=== PATIENT | male | born 1950 | race Caucasian/White ===

== ENCOUNTER → 2017-06-12 12:57 | Outpatient (CLI) | payer OTHER, SELFPAY ==
--- NOTE | 2017-06-12 13:02 | CT_ITS ---
STUDY: CT ABDOMEN AND PELVIS WITHOUT CONTRAST REASON FOR EXAM: Male, 66 years old. Right flank pain. Right inguinal hernia surgery. RADIATION DOSAGE (If Supplied By Facility): CTDIvol = ( 14.80 ) mGy, DLP = ( 810.07 ) mGycm TECHNIQUE: Transaxial images were obtained from the dome of the diaphragm to the symphysis pubis without oral contrast, and without intravenous contrast. Sagittal and coronal images were reconstructed. Individualized dose optimization techniques were used for this CT. COMPARISON: None. FINDINGS: The visualized lung bases are unremarkable. The visualized portions of the heart are within normal limits. Normal liver. Normal gallbladder and extrahepatic biliary system. Normal spleen. Normal pancreas. Normal bilateral adrenal glands. Normal right kidney. Normal left kidney. Small hiatal hernia. Normal small intestine. Small diverticula along the sigmoid colon, descending colon, transverse colon and without diverticulitis. The appendix is visualized and appears normal. Atherosclerotic calcifications along the abdominal aorta and iliac arteries. Normal inferior vena cava. Normal retroperitoneum. Normal urinary bladder. Normal abdominal wall. Degenerative vacuum phenomenon with disc space height narrowing at L4-L5 and L5-S1 disc space levels. Normal anterior wedging of the superior endplates of T10, T11, T12 and L1 vertebral bodies may be developmental or from remote injury. No acute osseous abnormality. Degenerative osteoarthrosis of the hip joints, left greater than right. CT/Abdomen/Pelvis without Cont IMPRESSION: 1. Colonic diverticulosis without diverticulitis. 2. Small hiatal hernia. 3. Asymmetric degenerative osteoarthrosis of both hips, left greater than right. 4. Degenerative vacuum phenomenon with disc space narrowing at L4-L5 and L5-S1 disc space levels. 5. Minimal anterior wedging of the superior endplates of T10 down to L1 vertebral bodies may be developmental or from remote injury. Electronically Signed: Vladimir Mcleod MD at 13:28 EDT , Service support ,
== END ==
PROVIDERS: Family Provider Internal Medicine; PCP Internal Medicine; Visit Provider Nurse Practitioner Gerontology
DX: R31.9 Hematuria, unspecified (principal)
CPT/HCPCS: 74176

== ENCOUNTER → 2018-06-01 13:04 | Outpatient (CLI) | payer OTHER, SELFPAY ==
--- NOTE | 2018-06-01 13:12 | RAD_ITS ---
STUDY: X-RAY - LEFT KNEE REASON FOR EXAM: Male, 67 years old. Knee pain. TECHNIQUE: 4 view(s) of the knee. COMPARISON: None. FINDINGS: There is generalized osteopenia. Normal visualized distal femur. Normal visualized proximal tibia and fibula. Normal proximal tibiofibular articulation. There is severe arthrosis of the medial compartment, mild arthrosis of the lateral compartment and moderate arthrosis of the patellofemoral compartment. There are vascular calcifications. RAD/Knee 4 or More Views IMPRESSION: Osteopenia with tricompartmental arthrosis as described. Electronically Signed: Wiley Noland MD at 15:31 EDT , Service support ,
--- NOTE | 2018-06-01 13:12 | RAD_ITS ---
STUDY: X-RAY - RIGHT KNEE REASON FOR EXAM: Male, 67 years old. Knee pain. TECHNIQUE: 4 view(s) of the knee. COMPARISON: None. FINDINGS: There is generalized osteopenia. Normal visualized distal femur. Normal visualized proximal tibia and fibula. Normal proximal tibiofibular articulation. There is severe arthrosis of the medial compartment, mild arthrosis of the lateral compartment and severe arthrosis of the patellofemoral compartment. There is a small joint effusion. The soft tissue structures are otherwise unremarkable. RAD/Knee 4 or More Views IMPRESSION: Osteopenia with tricompartmental arthrosis and small effusion. No acute finding. Electronically Signed: Wiley Noland MD at 15:29 EDT , Service support ,
== END ==
PROVIDERS: Family Provider Internal Medicine; PCP Internal Medicine; Referring Provider Internal Medicine; Visit Provider Internal Medicine
DX: M25.561 Pain in right knee (principal); M25.562 Pain in left knee
CPT/HCPCS: 73564

== ENCOUNTER → 2019-08-23 | Outpatient (CLI) | payer OTHER, SELFPAY ==
--- NOTE | 2019-08-23 11:36 | RAD_ITS ---
STUDY: X-RAY - PELVIS AND LEFT HIP REASON FOR EXAM: Male, 69 years old. LEFT HIP PAIN TECHNIQUE: 3 views of the pelvis and hip. COMPARISON: None. FINDINGS: There is a non-specific bowel gas pattern. Normal visualized soft tissue structures. There is narrowing with cortical sclerosis and osteophyte formation of the sacroiliac joint consistent with degenerative osteoarthritic changes. Normal bilateral superior and inferior pubic rami. Normal pubic symphysis. Normal bilateral ischial tuberosities. There is severe left hip arthrosis with obliteration of the joint space superiorly, and subchondral changes in the lateral acetabulum and femoral head suggesting AVN. Age consistent right hip arthrosis. No demonstrated fracture RAD/HIP, UNI W/ Pelvis 2-3 Views IMPRESSION: Severe left hip arthrosis with plain film changes of AVN, no demonstrated fracture Age consistent right hip and SI joint arthrosis Electronically Signed: Jesus Enamorado MD at 17:24 EDT , Service support ,
== END | disposition home or self-care (01) ==
PROVIDERS: PCP Internal Medicine; Referring Provider Internal Medicine; Visit Provider Internal Medicine
DX: M25.552 Pain in left hip (principal)
CPT/HCPCS: 73502

== ENCOUNTER → 2019-09-17 10:41 | Outpatient (CLI) | payer OTHER, SELFPAY ==
--- NOTE | 2019-09-17 10:45 | MRI_ITS ---
STUDY: MRI LEFT HIP REASON FOR EXAM: Left hip pain, abnormal radiograph, rule out avascular necrosis. TECHNIQUE: Standardized fat and water weighted pulse sequences were obtained in all 3 orthogonal planes. COMPARISON: Radiographs 08/23/2019. FINDINGS: There is left hip arthrosis with small marginal osteophytes of the femoral head, chondral loss (proton-density sagittal images 13, 14) and prominent subchondral cystic change of the acetabulum and femoral head (proton-density sagittal images 10-16). There is a small left hip joint effusion (proton-density sagittal image 17). There is a tear of the left superior labrum (inversion recovery coronal images 13-16) with a small paralabral cyst (inversion recovery coronal images 16, 17). There is mild reactive bone edema adjacent to the subchondral cystic change of the acetabulum and femoral head with mild bone edema extending into the femoral neck (inversion recovery coronal images 14-17). There is no demonstrated avascular necrosis of the left femoral head Normal gluteus minimus, medius and iliopsoas tendons and distal insertions. There is no trochanteric, iliopsoas or iliopectineal bursitis. Normal superior and inferior pubic rami. Normal pubic symphysis. Normal ischial tuberosity. Normal origin of the hamstring tendons. Normal visualized iliac wing, sacroiliac joint, and sacral ala. Normal visualized soft tissue structures of the pelvis. MRI/Lower Ext Joint Only (Routine) IMPRESSION: Advanced arthrosis of the left hip with prominent subchondral cysts and mild adjacent bone edema. Left superior labral tear with small paralabral cyst. Small left hip joint effusion. No demonstrated avascular necrosis. Electronically Signed: Chris Pagan MD at 12:24 EDT Tel , Service support ,
== END ==
PROVIDERS: PCP Internal Medicine; Referring Provider Internal Medicine; Visit Provider Internal Medicine
DX: R93.7 Abnormal findings on diagnostic imaging of other parts of musculoskeletal system (principal)
CPT/HCPCS: 73721

== ENCOUNTER 2020-01-20 10:25 | Observation (INO) | payer OTHER, SELFPAY ==
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
[2020-01-13 13:55] LABS: Absolute Lymphocyte Count 0.82 X10^3/uL (0.83-4.51); Absolute Neutrophil Count 4.8 X10^3/uL (2.0-7.7); Basophil# 0.05 X10^3/uL; Basophil% 0.8 % (0-1); Eosinophil# 0.23 X10^3/uL; Eosinophils% 3.6 % (0-5); Hematocrit 50.3 % (40-54); Lymphocyte # 0.82 X10^3/ul (4.0); Lymphocyte % 12.9 % (19-41); Mean Corp Hgb Conc 31.8 g/dL (32-36); Mean Corpuscular Hgb 29.5 pg (27.0-32.0); Mean Corpuscular Volume 92.6 fL (80-94); Mean Platelet Vol. 9.6 fl (6.2-12.0); Monocyte# 0.48 X10^3/uL; Monocyte% 7.6 % (0-10); NRBC Flagged by Analyzer 0 % (0-5); Neutrophil # 4.75 X10^3/uL (2.7-7.7); Neutrophil % 74.8 % (47-70); Platelet Count 236 K/mm3 (150-450); RBC Distribution Width CV 13.2 % (11.6-14.6); RBC Distribution Width SD 45.1 fl (35.1-43.9); Red Blood Count 5.43 M/mm3 (4.6-6.2); White Blood Count 6.4 K/mm3 (4.4-11.0)
[2020-01-13 14:38] LABS: Anion Gap 2 (5-15); BUN 24 mg/dL (7-18); Calcium,Total 9.2 mg/dL (8.5-10.1); Chloride 104 mmol/L (98-107); Creatinine, Serum 1.33 mg/dL (0.70-1.30); EST Glomerular Filtration Rate 57 mL/min (>60); Est Glom Filt Rate - Afr Amer 69 mL/min (>60); Glucose 82 mg/dL (74-106); Sodium Level 140 mmol/L (136-145)
[2020-01-20] VITALS (11 sets, daily range): BP systolic 118–159; BP diastolic 69–105; PULSE 81–97; RESP 16–18; TEMP 36.1–36.7; O2SAT 91–100; BMI 32.5
[2020-01-20] MEDS: Acetaminophen 500 MG Tablet 1000 MG PO ×3 (09:14→21:03)
[2020-01-20] MEDS: Gabapentin 600 MG Tablet PO (09:14)
[2020-01-20] MEDS: Celecoxib 200 MG Capsule 400 MG PO (09:14)
[2020-01-20] MEDS: Scopolamine 1mg/72hr Patch 1 PATCH TD (09:15)
[2020-01-20] MEDS: Lactated Ringers 1,000 ML 100 ML IV (09:19)
[2020-01-20 09:55] LABS: Bedside Glucose 97 mg/dL (70-110)
--- NOTE | 2020-01-20 10:25 | FEM._PTH ---
PATIENT: ODELL DE LEÓN LOC: MS3 U#:[id number] AGE/SX: 69/M ROOM: MS311 RE01/20/[address]: Dr. Noé Sanchez DO : 1950 BED: 1 DIS: 01/21/2020 SPEC #: [id number] RECD: 01/20/20 10:25 STATUS: BE REQ #: [id number] BETSY: 01/20/20 10:[address]: Noé Sanchez DEPT: SURGICAL PATHOLOGY RECD BY: Dianelys Perkins ENTERED: 01/20/20 13:42 SP TYPE: FEM HEAD OTHR DR: Dr. Joana High DO Tissues: Hip, NOS Procedures: Decalcification bone/plaque Surgery Specimen Level IV HEADER OPERATION: ERAS, total hip replacement PRE-OP DIAGNOSIS: Left hip osteoarthritis TISSUE SUBMITTED: Bone and soft tissue left hip MICROSCOPIC DIAGNOSIS Bone and soft tissue of left hip, total hip resection: Consistent with severe degenerative joint disease. AM:karmen 01/23/20 MICROSCOPIC DESCRIPTION Slides are reviewed. GROSS DESCRIPTION Received is one container labeled with the patient's name and designated bone and soft tissue of left hip. The specimen consists of a campoverde femoral head measuring 5.6 x 4.5 x 4 cm. The articular surface displays prominent osteophyte formation, eburnation and bone erosion. Also present in the specimen container are multiple irregular fragments of bone reamings and pink-yellow soft tissue measuring in aggregate 6.5 x 6 x 1.2 cm. Lab Asst sections are submitted in two cassettes as follows: 1 - soft tissue, 2 - bone after decalcification. / AM:karmen 01/20/20 TC:5 CPT: 04337, 27072
--- NOTE | 2020-01-20 10:26 | RAD_ITS ---
STUDY: X-RAY - PELVIS AND LEFT HIP REASON FOR EXAM: Postop left hip arthroplasty. TECHNIQUE: 2 views of the pelvis and hip. COMPARISON: Radiographs 08/23/2019. FINDINGS: There is postoperative gas in the soft tissues and overlying skin marcial. There is ankylosis of the superior aspects of the sacroiliac joints bilaterally. Normal bilateral superior and inferior pubic rami. Normal pubic symphysis. Normal bilateral ischial tuberosities. There is a left hip arthroplasty without evidence of complication. RAD/Hip Min 2 Views (Portable) IMPRESSION: Uncomplicated left hip arthroplasty. Electronically Signed: Chris Pagan MD at 13:38 EST Tel , Service support ,
[2020-01-20] MEDS: Cefazolin 2 GM in 0.9% Normal Saline 100 ML IV (10:38)
[2020-01-20] MEDS: dexAMETHasone 10 MG/ML Vial IV (10:50)
--- NOTE | 2020-01-20 11:57 | OP.PCM_ITS ---
Report of Operation Date of Procedure: 01/20/20 Pre-Operative Diagnosis: OA left hip Post-Operative Diagnosis: same Surgery/Procedure Performed:: Left THR vehicle refinisher: Eber Payan Type of Anesthesia:: Spinal Anesthesiologist: Lopez Berrios Specimen's removed: bone Estimated Blood Loss (mL): 100 cc - Admit VTE Documentation VTE Present on Admission: No VTE Mechan Device Prophylaxis: SCD's, Thigh High ZEINAB Hose VTE Pharm Prophylaxis ordered?: Yes
[2020-01-20] MEDS: Lactated Ringers 1,000 ML 999 ML IV (12:35)
[2020-01-20 12:59] LABS: Hematocrit 44.7 % (40-54); Hemoglobin 14.9 g/dL (13.0-16.5); Mean Corp Hgb Conc 33.3 g/dL (32-36); Mean Corpuscular Hgb 30.4 pg (27.0-32.0); Mean Corpuscular Volume 91.2 fL (80-94); Mean Platelet Vol. 9.2 fl (6.2-12.0); Platelet Count 206 K/mm3 (150-450); RBC Distribution Width CV 13.1 % (11.6-14.6)
[2020-01-20 13:11] LABS: Anion Gap 7 (5-15); BUN 19 mg/dL (7-18); BUN/Creat Ratio 16.8 RATIO (10-20); Calcium,Total 8.3 mg/dL (8.5-10.1); Chloride 106 mmol/L (98-107); Creatinine, Serum 1.13 mg/dL (0.70-1.30); EST Glomerular Filtration Rate 69 mL/min (>60); Est Glom Filt Rate - Afr Amer 83 mL/min (>60); Estimated Creatinine Clearance 62.57 ml/min; Glucose 142 mg/dL (74-106); Potassium 3.3 mmol/L (3.5-5.1); Sodium Level 140 mmol/L (136-145)
[2020-01-20] MEDS: Lactated Ringers 1,000 ML 125 ML IV (13:34)
[2020-01-20] MEDS: Aspirin 81 MG TAB.CHEW PO (17:02)
[2020-01-20] MEDS: Cefazolin 1 GM/50 ML BAG IV (18:43)
[2020-01-20] MEDS: Senna/Docusate Sodium 1 Tablet 2 TABLET PO (21:03)
[2020-01-21] MEDS: oxyCODONE 5 MG Tablet PO ×3 (00:13→12:31)
[2020-01-21] MEDS: Cefazolin 1 GM/50 ML BAG IV (02:17)
[2020-01-21 04:30] VITALS: BP 111/63; PULSE 77; RESP 16; TEMP 36.7; O2SAT 100
[2020-01-21] MEDS: Acetaminophen 500 MG Tablet 1000 MG PO ×2 (06:01→14:17)
[2020-01-21 07:08] LABS: Hematocrit 42.5 % (40-54); Hemoglobin 14.1 g/dL (13.0-16.5); Mean Corp Hgb Conc 33.2 g/dL (32-36); Mean Corpuscular Hgb 30.1 pg (27.0-32.0); Mean Corpuscular Volume 90.8 fL (80-94); Mean Platelet Vol. 9.9 fl (6.2-12.0); Platelet Count 176 K/mm3 (150-450); RBC Distribution Width CV 13.2 % (11.6-14.6); Red Blood Count 4.68 M/mm3 (4.6-6.2); White Blood Count 11.8 K/mm3 (4.4-11.0)
[2020-01-21 07:32] LABS: Anion Gap 5 (5-15); BUN 17 mg/dL (7-18); BUN/Creat Ratio 16.5 RATIO (10-20); Calcium,Total 8.3 mg/dL (8.5-10.1); Chloride 107 mmol/L (98-107); Creatinine, Serum 1.03 mg/dL (0.70-1.30); EST Glomerular Filtration Rate 76 mL/min (>60); Est Glom Filt Rate - Afr Amer 92 mL/min (>60); Estimated Creatinine Clearance 68.64 ml/min; Glucose 113 mg/dL (74-106); Potassium 4.5 mmol/L (3.5-5.1); Sodium Level 138 mmol/L (136-145)
--- NOTE | 2020-01-21 08:14 | PCM.PN.ORT ---
Subjective: Pt. doing well. Pain well controlled on current regimen. Denies N/T/P. - Physical Exam Vitals/I&O's: Vital Signs Temp Pulse Resp BP Pulse Ox 98.0 F 77 16 111/63 100 01/21/20 04:30 01/21/20 04:30 01/21/20 04:30 01/21/20 04:30 01/21/20 04:30 Oxygen Flow Rate (L/min) 6 Oxygen Delivery Method Room Air Weight: 220 lb 0.341 oz Body Mass Index (BMI) 32.5 Intake and Output for Last 24 Hours 01/19/20 01/20/20 01/21/20 23:59 23:59 23:59 Intake Total 3486 / 3986 550 / 550 Output Total 150 / 675 975 / 975 Balance 3336 / 3311 -425 / -425 General: Alert, Oriented x3, Cooperative, No apparent distress Extremities: No clubbing, No cyanosis, No edema, Capillary Refill Less than 3 Seconds, No Calf Tenderness Skin: Incision - stable Neurological: Neuro grossly intact Laboratory Results 01/20/20 09:03: POC Glucose 97 01/20/20 12:50: WBC 8.0, RBC 4.90, Hgb 14.9, Hct 44.7, MCV 91.2, MCH 30.4, MCHC 33.3, RDW Std Deviation 44.0 H, RDW Coeff of Skyler 13.1, Plt Count 206, MPV 9.2 01/20/20 12:50: Sodium 140, Potassium 3.3 L, Chloride 106, Carbon Dioxide 27.0, Anion Gap 7, BUN 19 H, Creatinine 1.13, Estim Creat Clear Calc 62.57, Est GFR (MDRD) Af Amer 83, Est GFR (MDRD) Non-Af 69, BUN/Creatinine Ratio 16.8, Glucose 142 H, Calcium 8.3 L 01/21/20 06:48: WBC 11.8 H, RBC 4.68, Hgb 14.1, Hct 42.5, MCV 90.8, MCH 30.1, MCHC 33.2, RDW Std Deviation 44.0 H, RDW Coeff of Skyler 13.2, Plt Count 176, MPV 9.9 01/21/20 06:48: Sodium 138, Potassium 4.5, Chloride 107, Carbon Dioxide 26.0, Anion Gap 5, BUN 17, Creatinine 1.03, Estim Creat Clear Calc 68.64, Est GFR (MDRD) Af Amer 92, Est GFR (MDRD) Non-Af 76, BUN/Creatinine Ratio 16.5, Glucose 113 H, Calcium 8.3 L Current Medications Acetaminophen (Acetaminophen 500 Mg Tablet) 1,000 mg PO Q8 [facility] Last Admin: 01/21/20 06:01 Dose: 1,000 mg Documented by: Aspirin ([facility] 81 Mg [facility].Chew) [facility] Admin: 01/20/20 17:02 Dose: 81 mg Documented by: Cholecalciferol (Cholecalciferol (Vit D3) 1,000 Unit (25mcg)) 10,000 unit PO DAILY [facility] Sodium Chloride () 250 mls @ 15 mls/hr IV .[id number] PRN PRN Reason: Saline Flush Sodium Chloride () 250 mls @ 15 mls/hr IV .[id number] PRN PRN Reason: Additional IVPB Infusion Lactobacillus Acidophilus (Lactobacillus Acidophilus) 1 tablet PO DAILY [facility] Multivitamins (Vitamin B Comp W-C Capsule) [facility] Ondansetron HCl (Ondansetron 4 Mg/2 Ml Vial) 4 mg IV Q8H PRN PRN PRN Reason: NAUSEA Oxycodone HCl (Oxycodone 5 Mg Tablet) 5 - 10 mg PO Q4H PRN PRN PRN Reason: Pain Score 4-10 Last Admin: 01/21/20 07:04 Dose: 5 mg Documented by: Promethazine HCl (Promethazine 25 Mg/Ml Syringe) 12.5 mg IM Q6H PRN PRN; Protocol PRN Reason: NAUSEA/VOMITING Senna/Docusate Sodium (Senna/Docusate Sodium 1 Tablet) 2 tablet PO BID [facility] Last Admin: 01/20/20 21:03 Dose: 2 tablet Documented by: Sodium Chloride (0.9% Saline Lock 10 Ml Syringe) 10 - 40 ml IV UD PRN PRN Reason: SALINE FLUSH Medical Necessity - Tobacco Use Smoking Status: Former smoker Tobacco Use: Non-smoker Assessment/Plan s/p Left THR D/c home after PT today
--- NOTE | 2020-01-21 08:16 | DCINST_ITS ---
Discharge Diet: No Restrictions Discharge Activity: May Not Drive, May Shower May shower in (days): 2 May resume sexual activity in: No Restrictions Ice area for (Minutes): 30 Weight Bearing Status: Weight bearing as tolerated Call your doctor if your incision/area has: Continuous Slow Oozing, Sudden Increased Bleeding, Increased Pain/ Swelling, Increased Redness, Foul Smelling Discharge Call your doctor if you observe: Fever of 101 or Higher, Coldness, Increased Pain, Numbness or Tingling Change Dressing in (Days):: 5 Cleanse incision/area with: Soap & Water Allergies/Adverse Reactions: Allergies orange juice Adverse Reaction (Verified 01/20/20 08:23) Food Allergy Medications to take at Discharge Cartilage/Collagen/Bor/Hyalur [Joint Health Tablet] 2 ea PO DAILY 01/06/20 Cholecalciferol (Vitamin D3) [Vitamin D3] 10,000 unit PO DAILY 01/06/20 Corbyceps 2 cap PO TID 01/06/20 Inflam X 2 cap PO BID 01/06/20 L.acidoph,Paracasei, B.lactis [Probiotic] 1 ea PO DAILY 01/06/20 Phytonadione (Vit K1) [Vitamin K] 100 mcg PO DAILY 01/06/20 Ppq With Ubiquinal 1 cap PO DAILY 01/06/20 Vitamin B Complex 1 ea PO DAILY 01/06/20 Acetaminophen [Tylenol] 1,000 mg PO Q8 tab 01/21/20 Aspirin [Aspirin, Baby] 81 mg PO BIDCM tab.chew 01/21/20 Oxycodone [Oxyir] 5 - 10 mg PO Q4H PRN PRN 7 Days #60 tab 01/21/20 Senna/Docusate Sodium [Senokot-S] 2 tab PO BID tab 01/21/20 The following prescriptions were given: Oxycodone [Oxyir] 5 - 10 mg PO Q4H PRN PRN 7 Days #60 tab PRN Reason: Pain Score 4-10 Prescription Printed Primary Care Physician: Joana High DO [Primary Care Provider] - Test Results: Test results from this visit will be discussed in further detail at your follow- up appointment, if applicable. Proposed Discharge Date: 01/21/20
[2020-01-21 09:45] VITALS: BP 97/54; PULSE 81; RESP 16; TEMP 36.7; O2SAT 95
[2020-01-21] MEDS: Aspirin 81 MG TAB.CHEW PO (09:49)
[2020-01-21] MEDS: Vitamin B Comp W-C Capsule 1 CAP PO (09:49)
[2020-01-21] MEDS: Senna/Docusate Sodium 1 Tablet 2 TABLET PO (09:49)
--- NOTE | 2020-01-21 10:45 | CASEMGMT ---
THADDEUS VANG Face to Face with patient for initial transition planning/care coordination assessment. RN CM introduced self and role at [facility]. Patient sitting in chair, alert and oriented. Patient willing to participate in assessment and is able to answer all questions appropriately. Care providers, pharmacy, and demographics verified. Patient wishes to discharge home and is setup with [facility] for outpatient therapy. Patient states he has no further needs or concerns at this time. CM to follow for discharge planning needs that may arise. PCP: Anila Specialists: snow Sanchez Pharmacy: [facility] Insurance: [employer] Prescription Benefit: yes Living Will/HPOA: yes, Tati Lu LNOK: Tati Living Arrangements: Patient lives with in a single story home with 2 steps and railing x2. Patient states he was independent at home prior to surgery Transportation: DME/HHC: patient states he has shower chair, raised toilet, cane, walker, rollator, grab bars, and hip kit at home. Patient is scheduled for outpatient therapy at [facility] Disposition Plan: Patient to discharge home with outpatient therapy, family support, and follow-up plans in place. Kirsten DESIR, RN, CM
[2020-01-21 14:15] VITALS: BP 134/61; PULSE 98; RESP 16; TEMP 36.8; O2SAT 98
--- NOTE | 2020-01-21 14:15 | CHAPLAIN ---
Type of Pastoral Visit _x__ Initial Visit ___ Follow-up Visit ___ On-call Visit ___ General Patient Visit ___ Spiritual Assessment ___ Family Conference ___ Bereavement ___ Rapid Response ___ Code Blue ___ Other (describe below) Pastoral Care Referral From _x__ Patient ___ Family ___ Nurse ___ Physician ___ Charge Loader ___ Foundry Hand ___ Other (describe below) Sacrament/Intervention _x__ Active listening ___ Anointing ___ Jehovah'S Witness ___ Bereavement ___ Communion _x__ Elsie exploration ___ _x__ Life review _x__ Prayer ___ Reconciliation ___ Sacrament of Sick ___ Supportive presence ___ Wedding ___ Other (describe below) Pastoral Comments patient eager to tell his story of elsie and life; prayer
--- NOTE | 2020-01-21 14:18 | PHA.DC.MC ---
Pharmacy Service has performed discharge medication reconciliation and counseling for this patient. 1. ACETAMINOPHEN 1000MG PO Q8H 2. ASPIRIN 81MG PO BIDCM 3. OXYCODONE 5-10MG PO Q4H PRN PAIN 4-10 4. SENNA/DOCUSATE 2T PO BID The patient's discharge medication list was reviewed for discrepancies and discrepancies were resolved. Home Medications Cartilage/Collagen/Bor/Hyalur [Joint Health Tablet] 2 ea PO DAILY 01/06/20 Cholecalciferol (Vitamin D3) [Vitamin D3] 10,000 unit PO DAILY 01/06/20 Corbyceps 2 cap PO TID 01/06/20 Inflam X 2 cap PO BID 01/06/20 L.acidoph,Paracasei, B.lactis [Probiotic] 1 ea PO DAILY 01/06/20 Phytonadione (Vit K1) [Vitamin K] 100 mcg PO DAILY 01/06/20 Ppq With Ubiquinal 1 cap PO DAILY 01/06/20 Vitamin B Complex 1 ea PO DAILY 01/06/20 Acetaminophen [Tylenol] 1,000 mg PO Q8 tab 01/21/20 Aspirin [Aspirin, Baby] 81 mg PO BIDCM tab.chew 01/21/20 Oxycodone [Oxyir] 5 - 10 mg PO Q4H PRN PRN 7 Days #60 tab 01/21/20 Senna/Docusate Sodium [Senokot-S] 2 tab PO BID tab 01/21/20 The patient was counseled on the following discharge medications and changes in medications for homegoing were reviewed. The Reason for Use, instructions for use, and potential side effects were reviewed for all new medications. The patient's questions regarding all of their medications were answered. The patient was able to verbally demonstrate an understanding of their discharge medications.
== END 2020-01-21 14:29 | disposition home or self-care (01) ==
LOC: SDC 10:34 → MS3 10:34
PROVIDERS: Anesthesiology; Admitting Provider Orthopaedic Surgery; PCP Internal Medicine; Referring Provider Orthopaedic Surgery; Visit Provider Orthopaedic Surgery
PROC: 0SRB0JZ Replacement of Left Hip Joint with Synthetic Substitute, Open Approach (ICD-10-PCS; CPT 27130; principal; 2020-01-20 10:00)
DX: M16.12 Unilateral primary osteoarthritis, left hip (principal); Z20.828 Contact with and (suspected) exposure to other viral communicable diseases; Z79.899 Other long term (current) drug therapy; I45.10 Unspecified right bundle-branch block; Z87.891 Personal history of nicotine dependence; G25.81 Restless legs syndrome
CPT/HCPCS: 01214; 27130; 36415; 73502; 80048; 82962; 83735; 85025; 85027; 87081; 87426; 88305; 88311; 96365; 96366; 97110; 97116; 97162; 97166; 97530; 97535; 99218; 99251; C1776; C9803; J7120; G0378; G0379; G0463; J2405

== ENCOUNTER 2020-05-04 10:24 | Emergency (ER) | payer OTHER, SELFPAY ==
[2020-01-20 14:46] VITALS: BMI 32.5
[2020-05-04 10:25] VITALS: BP 158/99; PULSE 74; RESP 20; TEMP 36.3; O2SAT 99; BMI 32.3
--- NOTE | 2020-05-04 10:48 | ED.DCSUM_ITS ---
History of Present Illness Chief Complaint: Chest Pain Informant: Patient, Family Narrative: 69-year-old male states that on Monday at [address] he developed a squeezing severe pain in the left shoulder. Lasted at least 20 seconds and then let up. 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 He had a hip replacement in January and states since that time he is had fatigue. Notes that he has been previously treated for hypertension but since taking pham min D that is come down. He is a former smoker having quit over 20 years ago. He had a stress test at least 10 years ago that was negative. Past Medical History - Allergies and Home Meds Allergies/Adverse Reactions: Allergies orange juice Adverse Reaction (Verified 01/20/20 08:23) Food Allergy Primary Care Physician: Joana High DO [Primary Care Provider] - As soon as possible (to discuss Stress testing) Past Medical History: - - Hypertension history Surgical History: noncontributory Lives: Spouse/ Significant Other Smoking Status: Former smoker Drugs: None Review of Systems General: Denies: Chills, Fever, Sweats Eyes: Denies: Visual changes - bilaterally, Diplopia ENT: Denies: Rhinorrhea, Sore throat Cardiovascular: Denies: Chest pain, Palpitations Respiratory: Denies: Dyspnea, Cough, Dyspnea on exertion Gastrointestinal: Denies: Abdominal pain, Nausea, Vomiting, Diarrhea, Melena, Hematochezia Genitourinary: Denies: Dysuria, Hematuria, Frequency Musculoskeletal: Reports: Extremity Pain. Denies: Back pain Skin: Denies: Rash, Wounds Neurological: Denies: Headache, Weakness, Numbness Physical Exam Vital Signs/Narrative: Vital Signs Temp Pulse Resp BP Pulse Ox 05/04/20 10:25 97.3 F L 74 20 H 158/99 H 99 Inital Vital Signs reviewed: Yes General: Well nourished, Well developed, No Acute Distress Head: Normocephalic, Atraumatic Eyes: Perrl, EOMI ENT: Moist mucous membranes, No rhinorrhea Neck: Supple, Nontender Cardiovascular: Regular rate, Regular rhythm, No murmurs Respiratory: No distress, CTA bilaterally, Chest nontender Abdomen: Soft, Nontender, Nondistended, Normal bowel sounds Back: Nontender, Normal Inspection Extremities: Nontender, No edema Skin: Normal color, No rash Neurological: Alert, Oriented x3, Cranial nerves II-XII grossly intact, Normal Strength, Normal Sensation Psychological: Normal affect, Normal Mood Diagnostic/Tx/Re-eval Clinical Impression(s) from Imaging Studies Chest X-Ray 05/04/20 11:46 IMPRESSION: No acute abnormality is seen. Electronically Signed: Ja De La Fuente MD at 12:05 EDT , Service support , Abdomen/Pelvis CT 05/04/20 13:09 IMPRESSION: Sigmoid diverticulosis. Left renal cyst. Electronically Signed: Ja De La Fuente MD at 13:37 EDT , Service support , Laboratory Last Values WBC 5.1 K/mm3 (4.4-11.0) 05/04/20 10:45 RBC 5.69 M/mm3 (4.6-6.2) 05/04/20 10:45 Hgb 16.7 g/dL (13.0-16.5) H 05/04/20 10:45 Hct 51.1 % (40-54) 05/04/20 10:45 MCV 89.8 fL (80-94) 05/04/20 10:45 MCH 29.3 pg (27.0-32.0) 05/04/20 10:45 MCHC 32.7 g/dL (32-36) 05/04/20 10:45 RDW Std Deviation 41.1 fl (35.1-43.9) 05/04/20 10:45 RDW Coeff of Skyler 12.5 % (11.6-14.6) 05/04/20 10:45 Plt Count 222 K/mm3 (150-450) 05/04/20 10:45 MPV 9.5 fl (6.2-12.0) 05/04/20 10:45 Immature Gran % (Auto) 0.200 % (0.0-0.9) 05/04/20 10:45 Neut % (Auto) 68.4 % (47-70) 05/04/20 10:45 Lymph % (Auto) 16.0 % (19-41) L 05/04/20 10:45 [place] % (Auto) 7.9 % (0-10) 05/04/20 10:45 Eos % (Auto) 6.5 % (0-5) H 05/04/20 10:45 Baso % (Auto) 1.0 % (0-1) 05/04/20 10:45 Absolute Neuts (auto) 3.5 X10^3/uL (2.0-7.7) 05/04/20 10:45 Absolute Lymphs (auto) 0.81 X10^3/uL (0.83-4.51) L 05/04/20 10:45 Nucleated RBC % 0 % (0-5) 05/04/20 10:45 Sodium 138 mmol/L (136-145) 05/04/20 10:45 Potassium 4.3 mmol/L (3.5-5.1) 05/04/20 10:45 Chloride 103 mmol/L (98-107) 05/04/20 10:45 Carbon Dioxide 32.0 mmol/L (21.0-32.0) 05/04/20 10:45 Anion Gap 3 (5-15) L 05/04/20 10:45 BUN 19 mg/dL (7-18) H 05/04/20 10:45 Creatinine 1.24 mg/dL (0.70-1.30) 05/04/20 10:45 Estim Creat Clear Calc 60.73 ml/min 05/04/20 10:45 Est GFR (MDRD) Af Amer 74 mL/min (>60) 05/04/20 10:45 Est GFR (MDRD) Non-Af 62 mL/min (>60) 05/04/20 10:45 BUN/Creatinine Ratio 15.3 RATIO (10-20) 05/04/20 10:45 Glucose 95 mg/dL (74-106) 05/04/20 10:45 Calcium 9.4 mg/dL (8.5-10.1) 05/04/20 10:45 Troponin I < 0.015 ng/mL (<0.045) 05/04/20 10:45 - EKG Initial EKG Interpretation: Sinus Rhythm - EKG demonstrates a normal sinus rhythm with a rate of 73 with a right bundle branch block. - Medical Decision Making His heart score places him in the low risk category. I spoke with his primary care physician's office to help arrange early follow-up for cardiac stress testing. Patient is comfortable with that plan. The patient at exit interview informs me that he wonders if he has a kidney stone because he has been intermittently having left low back pain. He wishes to have this worked up as well here today. CT of the flank was obtained which does not demonstrate any ureterolithiasis. There is a noted left renal cyst. Sigmoid diverticulosis. UA does not show any infection. At this point patient will be discharged home following up with his doctor. ED Disposition - Plan for ED Patient: Disposition: Home or Assisted Living Diagnosis: Chest pain Instructions: ED Chest Pain, Uncertain Cause Referrals: Joana High DO [Primary Care Provider] - As soon as possible (to discuss Stress testing)
--- NOTE | 2020-05-04 10:48 | EKG12_ITS ---
Test Reason : CP Blood Pressure : / mmHG Vent. Rate : 073 BPM Atrial Rate : 073 BPM P-R Int : 172 ms QRS Dur : 146 ms QT Int : 406 ms P-R-T Axes : 039 -38 007 degrees QTc Int : 447 ms Normal sinus rhythm Left axis deviation Right bundle branch block Minimal voltage criteria for LVH, may be normal variant Abnormal ECG Confirmed by VALENTINO MULTANI, ART ([id number]), magazine editor JAJA SAL ([id number]) on 05/07/2020 9:35:19 AM Referred By: Confirmed By:ART AVELAR MD
[2020-05-04 10:55] LABS: Absolute Lymphocyte Count 0.81 X10^3/uL (0.83-4.51); Absolute Neutrophil Count 3.5 X10^3/uL (2.0-7.7); Basophil# 0.05 X10^3/uL; Eosinophil# 0.33 X10^3/uL; Eosinophils% 6.5 % (0-5); Hematocrit 51.1 % (40-54); Hemoglobin 16.7 g/dL (13.0-16.5); Lymphocyte # 0.81 X10^3/ul (4.0); Mean Corp Hgb Conc 32.7 g/dL (32-36); Mean Corpuscular Hgb 29.3 pg (27.0-32.0); Mean Corpuscular Volume 89.8 fL (80-94); Mean Platelet Vol. 9.5 fl (6.2-12.0); Monocyte% 7.9 % (0-10); NRBC Flagged by Analyzer 0 % (0-5); Neutrophil # 3.45 X10^3/uL (2.7-7.7); Neutrophil % 68.4 % (47-70); Platelet Count 222 K/mm3 (150-450); RBC Distribution Width CV 12.5 % (11.6-14.6); RBC Distribution Width SD 41.1 fl (35.1-43.9); Red Blood Count 5.69 M/mm3 (4.6-6.2); White Blood Count 5.1 K/mm3 (4.4-11.0)
[2020-05-04 11:09] LABS: Anion Gap 3 (5-15); BUN 19 mg/dL (7-18); BUN/Creat Ratio 15.3 RATIO (10-20); Calcium,Total 9.4 mg/dL (8.5-10.1); Chloride 103 mmol/L (98-107); Creatinine, Serum 1.24 mg/dL (0.70-1.30); EST Glomerular Filtration Rate 62 mL/min (>60); Est Glom Filt Rate - Afr Amer 74 mL/min (>60); Estimated Creatinine Clearance 60.73 ml/min; Glucose 95 mg/dL (74-106); Potassium 4.3 mmol/L (3.5-5.1); Sodium Level 138 mmol/L (136-145)
[2020-05-04 11:11] VITALS: BP 173/114; PULSE 72; RESP 21; O2SAT 99
--- NOTE | 2020-05-04 11:46 | RAD_ITS ---
STUDY: X-RAY CHEST REASON FOR EXAM: Male, 69 years old. Chest pain and left arm pain. TECHNIQUE: Single AP portable view of the chest. COMPARISON: None. FINDINGS: EKG lead or dressing. The lungs are clear and expanded. There is no demonstrated pleural abnormality. Normal size heart. Normal mediastinum and livia. Normal visualized pulmonary arteries. There is atherosclerotic calcification of the aortic arch with tortuosity. There are diffuse degenerative changes of the visualized thoracic spine. There is degenerative osteoarthritis of the bilateral shoulders. There is no demonstrated abnormality of the visualized soft tissue structures of the upper abdomen. RAD/Chest 1 View (Portable) IMPRESSION: No acute abnormality is seen. Electronically Signed: Ja De La Fuente MD at 12:05 EDT , Service support ,
--- NOTE | 2020-05-04 13:09 | CT_ITS ---
STUDY: CT ABDOMEN AND PELVIS WITHOUT CONTRAST REASON FOR EXAM: Male, 69 years old. ABD PAIN RADIATION DOSAGE (If Supplied By Facility): CTDIvol = ( 19.92 ) mGy, DLP = ( 982.92 ) mGycm TECHNIQUE: Transaxial images were obtained from the dome of the diaphragm to the symphysis pubis without oral contrast, and without intravenous contrast. Sagittal and coronal images were reconstructed. Individualized dose optimization techniques were used for this CT. COMPARISON: None. FINDINGS: The visualized lung bases are unremarkable. Coronary artery calcification. Normal liver. Normal gallbladder and extrahepatic biliary system. Normal spleen. Normal pancreas. Normal bilateral adrenal glands. Normal right kidney. There is a 2.3 cm cyst in the upper pole of the left kidney. Normal visualized stomach. Normal small intestine. There are multiple colonic diverticula consistent with diverticulosis. The appendix is visualized and appears normal. There is diffuse atherosclerotic calcification of the abdominal aorta and its major visceral branches, without a demonstrated aneurysm. Normal inferior vena cava. Normal retroperitoneum. Normal urinary bladder. The prostate measures 4 cm x 5.1 cm. Central calcification. Normal abdominal wall. There are diffuse degenerative changes of the visualized lumbar spine. Status post ORIF of the left intertrochanteric fracture. CT/Abdomen/Pelvis without Cont IMPRESSION: Sigmoid diverticulosis. Left renal cyst. Electronically Signed: Ja De La Fuente MD at 13:37 EDT , Service support ,
[2020-05-04 14:10] LABS: Bacteria 0 SEEN /hpf (None Seen); Mucous, Urine 0 SEEN /hpf (<or=2+); Squamous Epithelial Cells - UA 0 SEEN /hpf (0-5); White Blood Cells 0 SEEN /hpf (0-5)
[2020-05-04 14:13] LABS: Glucose, Dipstick Normal (Normal); Ketone-Dipstick Negative (Negative); Leukocyte Esterase-Dipstick Negative /ul (Negative); Nitrite-Dipstick Negative (Negative); Occult Blood-Urine Negative /ul (Negative); Protein-Dipstick Negative (Negative); Urine Bilirubin Dipstick Negative (Negative); Urine Urobilinogen Normal (Normal); Urine pH 6.5 (5.0 - 8.0)
[2020-05-04 14:21] LABS: Color, Urine Yellow (Yellow); Red Blood Cells-Urine 0-5 SEEN /hpf (0-5); Urine Clarity Clear (Clear)
== END 2020-05-04 14:30 | disposition home or self-care (01) ==
PROVIDERS: Emergency Provider Emergency Medicine; PCP Internal Medicine
DX: R07.9 Chest pain, unspecified (principal); Z87.891 Personal history of nicotine dependence
CPT/HCPCS: 71045; 74176; 80048; 81001; 84484; 85025; 93005; 99285; A4216

== ENCOUNTER → 2020-07-08 16:22 | Outpatient (CLI) | payer OTHER, SELFPAY ==
--- NOTE | 2020-07-08 16:26 | RAD_ITS ---
STUDY: X-RAY - RIGHT KNEE REASON FOR EXAM: Male, 70 years old. Pain. TECHNIQUE: 4 view(s) of the knee. COMPARISON: 06/01/2018 radiographs. FINDINGS: No visible fracture. No osseous destruction. Alignment anatomic. Marked osteoarthritis of the medial compartment with near complete joint space loss and osteophytes. Moderate patellofemoral and mild lateral compartment osteoarthritis. No acute soft tissue abnormality. Calcific atherosclerosis. RAD/Knee 4 or More Views IMPRESSION: Marked osteoarthritis of the medial compartment. No acute osseous abnormality. Electronically Signed: Ventura Taylor MD at 4:33 EDT Tel , Service support ,
--- NOTE | 2020-07-08 16:26 | RAD_ITS ---
STUDY: X-RAY - PELVIS AND RIGHT HIP REASON FOR EXAM: Male, 70 years old. Right hip pain. Fell 2 weeks ago. TECHNIQUE: 3 views of the pelvis and hip. COMPARISON: None. FINDINGS: No visible fracture. No osseous destruction. Alignment anatomic. Moderate right hip osteoarthritis. Left hip total hip arthroplasty partially visible. Soft tissues unremarkable. RAD/HIP, UNI W/ Pelvis 2-3 Views IMPRESSION: No acute osseous abnormality. Moderate right hip osteoarthritis Electronically Signed: Ventura Taylor MD at 4:35 EDT Tel , Service support ,
== END ==
PROVIDERS: PCP Internal Medicine; Referring Provider Internal Medicine; Visit Provider Internal Medicine
DX: M25.551 Pain in right hip (principal); M25.561 Pain in right knee
CPT/HCPCS: 73502; 73564

== ENCOUNTER → 2020-12-24 10:10 | Outpatient (CLI) | payer OTHER, SELFPAY ==
[2020-12-24 10:35] LABS: CREATININE FINGERSTICK 1.1 mg/dL (0.70-1.30); EGFR FINGERSTICK > 60.0000 mL/min (>60)
--- NOTE | 2020-12-24 10:42 | CT_ITS ---
STUDY: CTA CHEST REASON FOR EXAM: Male, 70 years old. PE SUSPECTED RADIATION DOSAGE (If Supplied By Facility): CTDIvol = ( 12.45 ) mGy, DLP = ( 505.42 ) mGycm TECHNIQUE: The examination was performed with the intravenous administration of IV 100mL Isovue-370. Post-processing of the angiographic images was performed, with multiplanar reformation and 3D reconstruction. Individualized dose optimization techniques were used for this CT. COMPARISON: None. FINDINGS: Scattered intraluminal filling defects are seen in branches of the left upper lobe pulmonary artery in keeping with pulmonary emboli. There is atherosclerotic calcification of the aortic arch with tortuosity. There is no demonstrated aortic dissection. There are calcifications of the coronary arteries. Normal mediastinum. Enlargement of the right hilar lymph node measuring 2.7 cm. Normal visualized trachea and bronchi. The lungs are well expanded. There are diffuse bilateral pulmonary infiltrates in the preferential peripheral distribution involving both lungs upper and lower lobes suggestive of pneumonitis associated with Covid. Normal pleura. Normal chest wall structures. There are degenerative changes of thoracic spine. Normal visualized upper abdomen. CT/CTA Chest W/WO Contrast IMPRESSION: Pulmonary emboli in branches of the left upper lobe pulmonary artery. Diffuse bilateral pulmonary infiltrates suggestive of pneumonitis associated with Covid. Electronically Signed: Ja De La Fuente MD at 11:02 EST , Service support ,
== END ==
PROVIDERS: PCP Internal Medicine; Visit Provider Internal Medicine
DX: R06.02 Shortness of breath (principal)
CPT/HCPCS: 71275; Q9967

== ENCOUNTER 2021-04-16 15:30 | Outpatient (CLI) | payer OTHER, SELFPAY ==
--- NOTE | 2021-04-16 15:34 | CT_ITS ---
STUDY: CTA CHEST REASON FOR EXAM: Male, 70 years old. PE RADIATION DOSAGE (If Supplied By Facility): CTDIvol = ( 12.59 ) mGy, DLP = ( 532.26 ) mGycm TECHNIQUE: The examination was performed with the intravenous administration of IV 100mL Isovue-300. Post-processing of the angiographic images was performed, with multiplanar reformation and 3D reconstruction. Individualized dose optimization techniques were used for this CT. COMPARISON: 12/24/2020 FINDINGS: Normal enhancement of the main pulmonary artery and right and left pulmonary arteries. Normal enhancement of the bilateral peripheral pulmonary arteries. There is no demonstrated pulmonary embolism. Normal thoracic aorta and visualized great vessels. There is no demonstrated aortic dissection. Normal heart and pericardium. Normal mediastinum. Normal hilar regions. Normal visualized trachea and bronchi. The lungs are well expanded. Normal pulmonary parenchyma. Normal pleura. Normal chest wall structures. Normal osseous structures. Normal visualized upper abdomen. CT/CTA Chest W/WO Contrast IMPRESSION: Normal CTA chest examination, without a demonstrated pulmonary embolism or arterial dissection. Electronically Signed: Cliff Garcia MD at 16:56 EST ,
[2021-04-16 15:46] LABS: CREATININE FINGERSTICK 1.1 mg/dL (0.70-1.30); EGFR FINGERSTICK > 60.0000 mL/min (>60)
== END 2021-04-16 23:59 | disposition home or self-care (01) ==
LOC: CT 15:31
PROVIDERS: PCP Internal Medicine; Visit Provider Internal Medicine
DX: I26.99 Other pulmonary embolism without acute cor pulmonale (principal)
CPT/HCPCS: 71275; Q9967

== ENCOUNTER 2021-05-25 11:03 | Outpatient (CLI) | payer OTHER, SELFPAY ==
--- NOTE | 2021-05-25 11:07 | ECHOCS_ITS ---
Reason For Study: RBBB Procedure This was a 2D Doppler, Color Flow transthoracic echocardiogram. Techncially difficult study due to patients body habitus. Contrast injection performed. The study was technically difficult. Contrast injection was performed. Exam performed in department. Left Ventricle Normal LV size. Moderate concentric left ventricular hypertrophy. Left ventricular systolic function is normal. The estimated ejection fraction is 60 %. No evidence for diastolic dysfunction. No regional wall motion abnormalities noted. Right Ventricle Normal RV size. Normal systolic function. Atria The left atrium is mildly enlarged. Normal right atrium. No doppler evidence for ASD. Mitral Valve There is no mitral annular calcification. Normal mitral valve. Trivial mitral valve insufficiency. Tricuspid Valve Normal tricuspid valve. Mild tricuspid valve insufficiency. Right ventricular systolic pressure estimated to be 26 mmHg. Aortic Valve Trisinus/trileaflet aortic valve. Normal aortic valve. Mild (1+) aortic valve insufficiency. Pulmonic Valve The pulmonic valve is not well visualized. Trivial pulmonic valve insufficiency. Great Vessels Borderline enlarged aortic root. Pericardium/Pleural No pericardial effusion. Medication 22 gauge I.V. with prn adaptor inserted into right arm. Diluted definity 3ml given slow IV push to enhance endocardial definition. MMode/2D Measurements & Calculations LVIDd: 5.2 cm IVSd: 1.4 cm Ao root diam: 3.9 cm LVIDs: 3.1 cm LVPWd: 1.3 cm LA dimension: 4.5 cm FS: 41.0 % LAV(MOD-bp): 46.6 ml LA A4 area: 16.6 cm2 LAV(MOD-bp) Indexed: 20.2 ml/m2 LAV(MOD-sp2): 46.4 ml LAV(MOD-sp4): 42.0 ml Time Measurements MV dec time: 0.32 sec Doppler Measurements & Calculations MV E max sherif: 41.9 cm/sec Lat Peak E' Sherif: 7.9 cm/sec Med Peak E' Sherif: 5.2 cm/sec MV A max sherif: 89.1 cm/sec E/E' lat: 5.3 E/E' med: 8.0 MV E/A: 0.47 MV V2 max: 86.3 cm/sec MV P1/2t max sherif: 51.8 cm/sec Ao V2 max: 122.0 cm/sec MV max P.0 mmHg MV P1/2t: 111.9 msec Ao max P.0 mmHg MV V2 mean: 42.0 cm/sec MV dec slope: 135.5 cm/sec2 MV mean P.85 mmHg MV V2 VTI: 21.9 cm MVA(P1/2t): 2.0 cm2 LV V1 max: 96.6 cm/sec PA V2 max: 113.6 cm/sec TR max sherif: 239.3 cm/sec LV V1 max P.7 mmHg TR max P.9 mmHg ECHO/Echo Complete W/ Contrast Interpretation Summary The study was technically difficult. Contrast injection was performed. Left ventricular systolic function is normal. The estimated ejection fraction is 60 %. Moderate concentric left ventricular hypertrophy. The left atrium is mildly enlarged. Trivial mitral valve insufficiency. Mild tricuspid valve insufficiency. Mild (1+) aortic valve insufficiency. Trivial pulmonic valve insufficiency. Borderline enlarged aortic root. Right ventricular systolic pressure estimated to be 26 mmHg. No evidence for diastolic dysfunction. Ordering Physician: Joana High Referring Physician: Joana High M.D. Performed By: Urban Ba RCS
== END 2021-05-25 23:59 | disposition home or self-care (01) ==
PROVIDERS: PCP Internal Medicine; Visit Provider Internal Medicine
DX: I45.3 Trifascicular block (principal)
CPT/HCPCS: 93306; Q9957; A4216; C8929

== ENCOUNTER 2021-06-07 05:34 | Day surgery (SDC) | payer OTHER, SELFPAY ==
[2021-05-25 14:02] LABS: Magnesium 1.9 mg/dL (1.6-2.6)
[2021-05-25 14:47] LABS: Hemoglobin A1c 5.5 % (3.8-5.6)
[2021-06-07] VITALS (18 sets, daily range): BP systolic 55–155; BP diastolic 45–98; PULSE 72–89; RESP 10–18; TEMP 36.1–36.6; O2SAT 91–100; BMI 34.8
--- NOTE | 2021-06-07 | IMM_PTH ---
PATIENT: ODELL DE LEÓN LOC: [facility] [place] U#:[id number] AGE/SX: 70/M ROOM: RE06/07/[address]: Dr. Noé Sanchez DO : 1950 BED: DIS: 06/07/2021 SPEC #: [id number] RECD: 06/07/21 12:46 STATUS: BE REQ #: [id number] BETSY: 06/07/21 00:[address]: Noé Sanchez DEPT: IMMUNOHISTOCHEMISTRY RECD BY: Dianelys Perkins ENTERED: 06/10/21 12:48 SP TYPE: IMMUNO OTHR DR: Dr. Joana High DO Tissues: Hip, NOS Procedures: BCL-2 (add) CD20 (add) CD3 (add) CD45 (add) CD5 (add) CD79A (add) Pankeratin (initial) PHYSICIAN & INSTITUTION [place] [phone] SPECIMEN INFORMATION: Tissue Source: Femur Head, Right Hip Clinical Info: Osteoarthritis Specimen Number: [id number] #2 CPT code: 28102, 55973 x6 METHODOLOGY: Deparaffinized sections of prefer/formalin-fixed tissue or PAP/DQ stained slides are incubated with monoclonal/polyclonal antibodies/oligonucleotide probes. Localization is made via biotin free immunoperoxidase method. Appropriate controls are performed and reacted as expected. Results on target cell population are indicated in the following table: RESULTS: ANTIBODY / CLONE RESULT Block 2 AE1-3 (AE1/AE3/PCK26) negative CD3 (PS1) positive CD5 (SP10) positive CD20 (L26) positive CD45 (RP2/18) positive CD79a (11E3) positive BCL-2 (bcl-2/100/D5) negative These tests were developed and their performance characteristics determined by [facility]. They may not have been cleared or approved by the U.S. Food and Drug Administration. The FDA has determined that such clearance or approval is not necessary. The above immunohistochemical/dualISH markers are ordered and reviewed by the Pathologist. INTERPRETATION: Right hip bone, resection: Benign (polytypic) lymphoid aggregate. AM:karmen 06/11/2021
[2021-06-07] MEDS: Lactated Ringers 1,000 ML 15 ML IV (06:05)
[2021-06-07 06:25] LABS: Bedside Glucose 117 mg/dL (74-106)
[2021-06-07] MEDS: Magnesium 2 GM IV (06:51)
[2021-06-07] MEDS: Acetaminophen 500 MG Tablet 1000 MG PO (06:52)
[2021-06-07] MEDS: Gabapentin 600 MG Tablet PO (06:52)
--- NOTE | 2021-06-07 07:30 | FEM_PTH ---
PATIENT: ODELL DE LEÓN LOC: [facility] – [place] U#:[id number] AGE/SX: 70/M ROOM: RE06/07/[address]: Dr. Noé Sanchez DO : 1950 BED: DIS: 06/07/2021 SPEC #: [id number] RECD: 06/07/21 11:46 STATUS: BE REKellie #: [id number] EBTSY: 06/07/21 07:[address]: Noé Sanchez DEPT: SURGICAL PATHOLOGY RECD BY: Dianelys Perkins ENTERED: 06/07/21 12:30 SP TYPE: FEM HEAD OTHR DR: Dr. Joana High DO Tissues: Femoral region, NOS Procedures: Decalcification bone/plaque Surgery Specimen Level V HEADER OPERATION: ERAS, right total hip replacement, right knee intraarticular PRE-OP DIAGNOSIS: Right hip and right knee unilateral primary osteoarthritis TISSUE SUBMITTED: Femur head, right hip MICROSCOPIC DIAGNOSIS Bone and tissue of right hip, total hip resection: Severe degenerative joint disease. Benign lymphoid aggregate. See comment. AM:karmen 06/10/2021 COMMENT Immunohistochemistry ([id number]) supports the above diagnosis. MICROSCOPIC DESCRIPTION Slides are reviewed. GROSS DESCRIPTION Received is one container labeled with the patient's name and designated femur head right hip. The specimen consists of a campoverde femoral head with portion of femoral neck. The femoral head measures 5 x 5 x 5 cm and the femoral neck measures up to 1.5 cm in length. The articular surface displays prominent osteophyte formation, eburnation and bone erosion. Also present in the specimen container are multiple irregular fragments of bone reamings and pink-yellow soft tissue measuring in aggregate 8 x 7 x 3 cm. Senior Security Engineer sections are submitted in two cassettes as follows: 1 - soft tissue, 2 - bone after decalcification. / CORRY:karmen 06/07/2021 TC:5 CPT: 60861, 21401
[2021-06-07] MEDS: Cefazolin 2 GM in 0.9% Normal Saline 100 ML IV (07:45)
[2021-06-07] MEDS: TXA 1000mg in NS100 100ml (IVPB at Incision) 660 MG IV (07:55)
[2021-06-07] MEDS: TXA 1000mg in NS100 100ml (IVPB at Closure) 660 MG IV (08:52)
--- NOTE | 2021-06-07 09:01 | PCM.OPRPT ---
Report of Operation Date of Procedure: 06/07/21 Pre-Operative Diagnosis: OA right hip and right knee Post-Operative Diagnosis: same Surgery/Procedure Performed:: Right THR and intra-articular injection cortisone right knee Description of Surgical Findings:: Report of Operation Date of Procedure: 06/07/2021 Pre-Operative Diagnosis: OA [right ] hip and right knee Post-Operative Diagnosis: same Surgery/Procedure Performed: [ right ] THR and intra-articular injection cortisone right knee administrative director: Wiley Pepper PA-C Type of Anesthesia: spinal Anesthesiologist: Lopez Berrios M.D. Specimen's removed: bone Estimated Blood Loss (mL): 75 cc Implants: Joes Maria Accolade 2 size 4 femoral stem, 127 degree neck, +0 MDM head, 52 mm cup Surgical Indications: Patient has severe end-stage osteoarthritic changes in the [right ] hip. They have failed conservative measures including activity modification, anti-inflammatories, use of assistive devices. This to the point where the pain affects their ability to enjoy life and complete activities of daily living without discomfort. Patient has elected to undergo the above procedure Procedure Description: The patient was greeted in the preoperative area the [ right ] hip was marked with surgical marker preoperative antibiotics administered. The patient was then taken to or suite in stable condition. Preoperative tranexamic acid was also utilized. Once the patient was placed in the supine position on the operating room table and once adequate anesthesia was obtained they were then placed in the lateral decubitus position with the surgical hip facing the field. All bony prominences were well-padded. A commercial hip position was utilized. The appropriate extremity was then prepped and draped in usual sterile fashion. Ioban was placed on the skin. Surgical timeout was performed and surgery was commenced. A standard posterior approach to the hip was then performed. Incision was planned and carried out with a #10 blade scalpel. Dissection was then carried length of the incision to the IT band which was split proximally and distally. A Charnley retractor was then placed for soft tissue retraction exposing the piriformis. A standard posterior capsulotomy was performed. Severe eburnation of bone was noted and periarticular osteophytes were identified consistent with severe end-stage osteoarthritis. A femoral neck osteotomy guide was used to sravan the proximal femur. A femoral osteotomy was then created approximately 1 fingerbreadth above the lesser trochanter. This was measured and placed on the back table. Once this was complete acetabular retractors were placed anteriorly and posteriorly. Labrum was then removed from the acetabulum exposing the entire cup of the acetabulum. Sequential reaming was then commenced and the acetabulum was medialized and sequentially widened in order to accommodate appropriate size cup. The acetabular cup was then impacted into position to the appropriate depth referencing approximately [ 45 ] anteversion and [34 ]of inclination. Excellent purchase was obtained. hen placed. Attention was then turned to the femoral preparation. The hip was placed in the 90/90 position and a lateralizing box osteotome was utilized. Femoral starting awl was used followed by sequential broaching to the appropriate size. Excellent purchase was obtained with the stem no stem subsidence and excellent rotational stability was confirmed. A calcar reamer was then used in the trial head neck was placed on the broach. The hip was then located and taken through full range of motion flexion internal and external rotation as well as extension. Excellent stability was noted no impingement was identified of the components and leg lengths appear to be appropriate. The hip was at this point dislocated and the trial femoral components were removed. The final femoral stem was then implanted and impacted to the appropriate depth. Again excellent purchase was obtained no stem subsidence or rotational instability was noted. The hip was once again trialed and confirmation of leg length and stability was performed. Soft tissue tension also appeared to be appropriate. At this point the hip was redislocated and the trunnion was cleaned and dried meticulously in the appropriate size MDM femoral head was placed on the clean dry trunnion using a 12/14 Farias taper. The hip was once again relocated and again taken through full range of motion. I did inject a cocktail of postoperative pain medication in the deep and superficial tissues. Copious irrigation was performed. Anatomic closure of the piriformis tendon was performed through drill holes in the greater trochanter. A #1 Vicryl 0 Vicryl was utilized in subcutaneous tissue and surgical marcial were placed in the skin. A well-padded nonadherent dressing was applied. Patient was taken to PACU in stable condition. No complications were identified. Will follow standard postop protocol for total hip arthroplasty. My engineering inspection assistant played a vital role in the procedure beginning with positioning, holding retraction of soft tissues, positioning the leg to optimize visualization during the procedure and assisting with wound closure. Under sterile conditions, the right knee was injected with 4 cc 1% lidocaine and 2 cc of Celestone Soluspan. The patient was transferred to PACU in stable and satisfactory condition. Post-op Plan: DVT ppx; ASA 81 mg BID, thigh high compression stockings Follow up: in office in 2 weeks for wound check PT: to start POD #0 at hospital, outpatient PT should be arranged. Preoperative antibiotic: Noé Sanchez DO Surgeon: Noé Sanchez administrative director: Wiley Pepper Type of Anesthesia: Spinal Anesthesiologist: Lopez Berrios Estimated Blood Loss (mL): 75 cc Fluids Replaced: 1000 cc crystalloid Admit VTE Documentation VTE Present on Admission: No VTE Pharm Prophylaxis ordered?: Yes
[2021-06-07] MEDS: Betamethasone/Betamethasone 30 MG/5 ML Vial (09:18)
[2021-06-07] MEDS: Lidocaine 1% (20 ml mdv) 20 ML Vial (09:18)
--- NOTE | 2021-06-07 09:50 | RAD_ITS ---
STUDY: X-RAY - PELVIS AND RIGHT HIP REASON FOR EXAM: Male, 70 years old. post op THR -- in PACU TECHNIQUE: 3 views of the pelvis and hip. COMPARISON: 07/08/2020 FINDINGS: There is a non-specific bowel gas pattern. Normal visualized soft tissue structures. Degenerative changes of the lumbosacral spine. Normal bilateral iliac wings, sacroiliac joints and visualized sacrum. Normal bilateral superior and inferior pubic rami. Normal pubic symphysis. Normal bilateral ischial tuberosities. Left hip replacement noted. Right hip replacement in radiographic alignment. Surgical marcial, soft tissue swelling and subcutaneous emphysema compatible with recent surgery. RAD/Hip Min 2 Views (Portable) IMPRESSION: Radiographic alignment of recently placed right hip replacement. Electronically Signed: Damon Singh MD ([place]) at 13:32 EDT Reading Location ID and State: / [place] , Service support ,
[2021-06-07] MEDS: Lactated Ringers 1,000 ML 999 ML IV (10:25)
--- NOTE | 2021-06-07 13:56 | SUR.PHASEII ---
patient refuses to sit on side of bed with nurse's assistance, report nausea. at bay at this time after iv Zofran intervention and scop patch placement. will cont to monitor and encourage patient to sit at side of bed before contacting therapy for eval post op.
== END 2021-06-07 17:13 | disposition home or self-care (01) ==
LOC: SDC 05:35 → AC 05:35
PROVIDERS: Anesthesiology; PCP Internal Medicine; Referring Provider Orthopaedic Surgery; Visit Provider Orthopaedic Surgery
PROC: 0SR90JZ Replacement of Right Hip Joint with Synthetic Substitute, Open Approach (ICD-10-PCS; CPT 27130; principal; 2021-06-07 07:05)
DX: M16.11 Unilateral primary osteoarthritis, right hip (principal); M17.11 Unilateral primary osteoarthritis, right knee; Z86.16 Personal history of COVID-19; I10 Essential (primary) hypertension; I25.2 Old myocardial infarction; Z79.899 Other long term (current) drug therapy; Z86.718 Personal history of other venous thrombosis and embolism; Z87.891 Personal history of nicotine dependence; Z99.81 Dependence on supplemental oxygen; Z86.711 Personal history of pulmonary embolism; R06.02 Shortness of breath
CPT/HCPCS: 27130; 20610; 36415; 73502; 82962; 83036; 83735; 87081; 88307; 88311; 88341; 88342; 97162; C1776; J7120; J0702; J2405

== ENCOUNTER → 2021-09-06 | Outpatient (CLI) | payer OTHER, SELFPAY ==
[2021-09-06 18:07] LABS: PSA,Total- Diagnostic 8.22 ng/mL (0.0-4.0)
== END | disposition home or self-care (01) ==
LOC: MTLAB 14:59
PROVIDERS: PCP Internal Medicine; Referring Provider Urology; Visit Provider Urology
DX: R97.20 Elevated prostate specific antigen [PSA] (principal)
CPT/HCPCS: 36415; 84153

== ENCOUNTER → 2022-01-20 | Outpatient (CLI) | payer MEDICARE, SELFPAY ==
--- NOTE | 2022-01-20 13:00 | ECHOD_ITS ---
Reason For Study: EDEMA Procedure This was a 2D Doppler, Color Flow transthoracic echocardiogram. Exam performed in department. Left Ventricle Normal LV size. The estimated ejection fraction is 60 %. No evidence for diastolic dysfunction. No regional wall motion abnormalities noted. Right Ventricle Normal RV size. Normal systolic function. Atria Normal left atrium. Normal right atrium. No doppler evidence for ASD. Mitral Valve There is moderate mitral annular calcification. There is no mitral valve stenosis. No mitral valve insufficiency. Tricuspid Valve There is no tricuspid stenosis. Trivial tricuspid valve insufficiency. Unable to estimate RV systolic pressure due to insufficient tricuspid regurgitant envelope. Aortic Valve Trisinus/trileaflet aortic valve. There is no aortic stenosis. No aortic valve insufficiency. Pulmonic Valve There is no pulmonic valvular stenosis. Trivial pulmonic valve insufficiency. Great Vessels Normal aortic root. Pericardium/Pleural No pericardial effusion. MMode/2D Measurements & Calculations LVIDd: 5.1 cm IVSd: 1.4 cm Ao root diam: 3.3 cm LVIDs: 3.1 cm LVPWd: 1.1 cm FS: 38.5 % LAV(MOD-sp4): 49.8 ml LVAd ap4: 32.8 cm2 SV(MOD-sp4): 55.2 ml LVLd ap4: 8.4 cm EDV(MOD-sp4): 105.8 ml EDV(sp4-el): 109.2 ml LVAs ap4: 20.4 cm2 LVLs ap4: 7.7 cm ESV(MOD-sp4): 50.7 ml ESV(sp4-el): 45.9 ml EF(MOD-sp4): 52.1 % EF(sp4-el): 58.0 % SV(sp4-el): 63.3 ml LA A4 area: 17.5 cm2 LA dimension(2D): 4.1 cm RA A4 area: 14.4 cm2 Time Measurements MV dec time: 0.15 sec Doppler Measurements & Calculations MV E max sherif: 50.3 cm/sec Lat Peak E' Sherif: 5.3 cm/sec Med Peak E' Sherif: 4.5 cm/sec MV A max sherif: 94.1 cm/sec E/E' lat: 9.6 E/E' med: 11.2 MV E/A: 0.53 MV V2 max: 94.4 cm/sec Ao V2 max: 96.5 cm/sec MV max P.6 mmHg MV dec slope: 344.1 cm/sec2 Ao max P.8 mmHg MV V2 mean: 52.2 cm/sec Ao V2 mean: 65.2 cm/sec MV mean P.3 mmHg Ao mean P.0 mmHg MV V2 VTI: 18.5 cm Ao V2 VTI: 16.3 cm AV (velocity ratio): 0.93 LV V1 max: 79.8 cm/sec PA V2 max: 106.2 cm/sec TR max sherif: 253.4 cm/sec LV V1 max P.8 mmHg PA V2 mean: 74.7 cm/sec TR max P.7 mmHg LV V1 mean P.7 mmHg LV V1 mean: 59.2 cm/sec LV V1 VTI: 15.1 cm ECHO/Echo Complete Interpretation Summary The estimated ejection fraction is 60 %. No evidence for diastolic dysfunction. Ordering Physician: Randall Auguste V Referring Physician: Randall Auguste V Performed By: Gladis Olmos RCS
== END | disposition home or self-care (01) ==
PROVIDERS: PCP Internal Medicine; Referring Provider Internal Medicine Pulmonary Disease; Visit Provider Internal Medicine Pulmonary Disease
DX: R06.00 Dyspnea, unspecified (principal); R60.9 Edema, unspecified
CPT/HCPCS: 93306

== ENCOUNTER → 2022-02-15 | Outpatient (CLI) | payer MEDICARE, SELFPAY ==
--- NOTE | 2022-02-15 10:40 | STEWCON_ITS ---
Reason For Study: DYSPNEA Stress Results Maximum Predicted HR: 150 bpm Target HR: 128 bpm % Maximum Predicted HR: 87 % DurationHeart Rate Stage (mm:ss) (bpm) BP Dose Comment BASELINE 80 154/98 MANUAL BP TAKEN D/T 163/110 BY MACHINE STAGE 1 3:49 87 186/32418.00 STAGE 2 3:00 121 170/88 20.00 STAGE 3 1:34 131 / 30.00 RECOVERY 93 150/80 4 cc definity for test Stress Duration: 8:23 mm:ss Maximum Stress HR: 131 bpm Baseline Echocardiogram Findings Stress Echo Wall motion Data Resting WM Intermediate WM Stress WM Resting Wall Motion Wall Motion Int. Wall Motion Stress All segments Normal. All segments Hyperkinetic. All segments Hyperkinetic. Ejection Fraction 55 %. Ejection Fraction 65 %. Ejection Fraction 75 %. Stress Results Heart rate response: Technically adequate: Greater than 85% predicted maximal heart rate response Blood pressure response: Resting hypertension-appropriate response Cardiac rhythm: Occasional PAC/rare PVC during infusion and occasional PACs/occasional PVC/isolated ventricular couplet during recovery Stopped secondary to: Target heart rate achieved. EKG Data Baseline ECG: Sinus rhythm; right bundle branch block. Peak pharmacologic ECG: No obvious ECG changes. Symptoms with Stress No complaint of chest discomfort during pharmacologic infusion or recovery. ECHO/Stress Test Echo W/Contrast Interpretation Summary Negative (technically adequate: Percent predicted maximal heart rate greater th an 85%) dobutamine stress echocardiogram Ordering Physician: Randall Auguste V Performed By: Sejal Ta, DAWN, RVT
== END | disposition home or self-care (01) ==
LOC: CVS 10:39
PROVIDERS: PCP Internal Medicine; Visit Provider Internal Medicine Pulmonary Disease
DX: R06.00 Dyspnea, unspecified (principal)
CPT/HCPCS: 93017; 93350; J7040; Q9957; A4216; C8928

== ENCOUNTER → 2022-03-17 | Outpatient (CLI) | payer MEDICARE, SELFPAY ==
[2022-03-17 15:26] LABS: PSA,Total- Diagnostic 9.46 ng/mL (0.0-4.0)
== END | disposition home or self-care (01) ==
LOC: MTLAB 13:38
PROVIDERS: PCP Internal Medicine; Referring Provider Urology; Visit Provider Urology
DX: R97.20 Elevated prostate specific antigen [PSA] (principal)
CPT/HCPCS: 36415; 84153

== ENCOUNTER → 2022-04-08 | Outpatient (CLI) | payer MEDICARE, SELFPAY ==
--- NOTE | 2022-04-08 18:05 | MRI_ITS ---
STUDY: MR PELVIS WITH AND WITHOUT CONTRAST (PROSTATE); 3D POST PROCESSING REASON FOR EXAM: Male, 71 years old. Elevated PSA TECHNIQUE: Standardized multiparametric prostate MRI with T1, T2, DWI/ADC sequences were obtained in 3 orthogonal planes, and dynamic contrast enhancement sequences. 23 ml of DOTAREM contrast material was administered intravenously for the contrast portion of the examination. Exam limited by motion. COMPARISON: None. FINDINGS: The prostate volume measures 33 mm3. The contours of the prostate gland are smooth. There is not mass effect on the bladder base. The transition zone is heterogenous. PI-RADS DWI score 4 - Focal markedly hypointense on ADC and markedly hyperintense on high b-value DWI; < 1.5 cm on axial. PI-RADS T2W score 4 - Non-circumscribed, homogeneous, moderately hypointense, and <1.5 cm in greatest dimension. 9 x 9 mm ill-defined hypointense T2 signal intensity nodule in the anterior left transitional zone towards the apical gland is best seen on image 19 series 9 and image 9 series 7. Contrast enhancement no early or contemporaneous enhancement; or diffuse multifocal enhancement NOT corresponding to a focal finding on T2W and/or DWI or focal ehancement responding to a lesion demonstrating features of BPH onT2WI (including features of extruded BPH in the PZ). The peripheral zone is heterogenous. PI-RADS DWI score 2 - Linear/wedge shaped hypointense on ADC and/or linear/wedge shaped hyperintense on high b-value DWI. PI-RADS T2W score 2 - Linear, wedge-shaped, or diffuse mild hypointensity, usually with indistinct margin. Contrast enhancement no early or contemporaneous enhancement; or diffuse multifocal enhancement NOT corresponding to a focal finding on T2W and/or DWI or focal enhancement responding to a lesion demonstrating features of BPH onT2WI (including features of extruded BPH in the PZ). The seminal vesicles demonstrate normal margins and T2 signal pattern. No mass lesion or invasion depicted. The rectoprostatic angles are normal. Urinary bladder is normal without wall thickening. The vascular structures of the are normal. The visualized hollow viscus structures are normal. No bone marrow edema or mass lesion depicted. MRI/Pelvis W/WO Contrast IMPRESSION: 1. PIRADS v2.1 2019 -- 4 - High (clinically significant cancer is likely). 2. Exam limited by motion artifact. Electronically Signed: Damon Singh ([place]), at 10:42 EST Reading Location ID and State: [id number] , Service support ,
[2022-04-08 18:35] LABS: CREATININE FINGERSTICK 1.3 mg/dL (0.70-1.30)
== END | disposition home or self-care (01) ==
LOC: MRI 17:55
PROVIDERS: PCP Internal Medicine; Referring Provider Urology; Visit Provider Urology
DX: R97.20 Elevated prostate specific antigen [PSA] (principal)
CPT/HCPCS: 72197; A9575

== ENCOUNTER → 2022-05-02 | Outpatient (CLI) | payer MEDICARE, SELFPAY ==
--- NOTE | 2022-05-02 | IMM_PTH ---
PATIENT: ODELL DE LEÓN LOC: [facility] U#:[id number] AGE/SX: 71/M ROOM: RE05/02/[address]: Dr. Levi Vicente MD : 1950 BED: DIS: 05/02/2022 SPEC #: [id number] RECD: 05/04/22 14:15 STATUS: BE REKellie #: [id number] BETSY: 05/02/22 00:[address]: Levi Vicente DEPT: IMMUNOHISTOCHEMISTRY RECD BY: Donna Duke ENTERED: 05/04/22 14:16 SP TYPE: IMMUNO OTHR DR: Dr. Joana High DO Tissues: A - PROSTATE RIGHT C - PROSTATE RIGHT F - PROSTATE LEFT Procedures: 34BE12 (add) P40 (add) 34BE12 (initial) PHYSICIAN & INSTITUTION [place] [id number] SPECIMEN INFORMATION: Tissue Source: A - Right prostate, apex, C - Right prostate, base, F - Left prostate, base Clinical Info: Elevated PSA Specimen Number: [id number] A, C & F CPT code: 23587, 85254 x5 METHODOLOGY: Deparaffinized sections of prefer/formalin-fixed tissue or PAP/DQ stained slides are incubated with monoclonal/polyclonal antibodies/oligonucleotide probes. Localization is made via biotin free immunoperoxidase method. Appropriate controls are performed and reacted as expected. Results on target cell population are indicated in the following table: RESULTS: ANTIBODY / CLONE RESULT Block A P40 (BC28) negative 34BE12 (34BE12) negative Block C P40 (BC28) negative 34BE12 (34BE12) negative Block F P40 (BC28) negative 34BE12 (34BE12) negative These tests were developed and their performance characteristics determined by [facility]. They may not have been cleared or approved by the U.S. Food and Drug Administration. The FDA has determined that such clearance or approval is not necessary. The above immunohistochemical/dualISH markers are ordered and reviewed by the Pathologist. INTERPRETATION: A. Right prostate, apex, core biopsy: Adenocarcinoma. C. Right prostate, base, core biopsy: Adenocarcinoma. F. Left prostate, base, core biopsy: Adenocarcinoma. CORRY:karmen 05/05/2022
--- NOTE | 2022-05-02 | PROSBIL_PTH ---
PATIENT: ODELL DE LEÓN LOC: [facility] U#:[id number] AGE/SX: 71/M ROOM: RE05/02/[address]: Dr. Levi Vicente MD : 1950 BED: DIS: 05/02/2022 SPEC #: [id number] RECD: 05/03/22 09:47 STATUS: BE REQ #: [id number] BETSY: 05/02/22 00:[address]: Levi Vicente DEPT: SURGICAL PATHOLOGY RECD BY: Doe Moon ENTERED: 05/03/22 09:48 SP TYPE: PROST BX QUINCY DR: Dr. Joana High DO Tissues: A - PROSTATE RIGHT B - PROSTATE RIGHT C - PROSTATE RIGHT D - PROSTATE LEFT E - PROSTATE LEFT F - PROSTATE LEFT Procedures: PROSTATE BX HEADER OPERATION: Prostate biopsy PRE-OP DIAGNOSIS: Elevated PSA TISSUE SUBMITTED: A - Right apex, B - Right mid, C - Right base, D - Left apex, E - Left mid, F - Left base MICROSCOPIC DIAGNOSIS A. Right prostate, apex, core biopsy: Prostatic adenocarcinoma. Todd grade: 3+3=6 Number of cores involved: 2/2 Proportion of tissue involved: ~40% Perineural invasion: Not identified. Greatest tumor length: 0.7 cm See comment. B. Right prostate, mid, core biopsy: Prostatic tissue, negative for malignancy. C. Right prostate, base, core biopsy: Prostatic adenocarcinoma. Cami grade: 3+3=6 Number of cores involved: 1/2 Proportion of tissue involved: <5% Perineural invasion: Not identified. Greatest tumor length: 0.1 cm Chronic inflammation. See comment. D. Left prostate, apex, core biopsy: Prostatic adenocarcinoma. Todd grade: 3+4=7 Number of cores involved: 2/2 Proportion of tissue involved: ~75% Perineural invasion: Not identified. Greatest tumor length: 1.0 cm E. Left prostate, mid, core biopsy: Prostatic adenocarcinoma. Cami grade: 3+3=6 Number of cores involved: See comment. Proportion of tissue involved: ~40% Perineural invasion: Not identified. Greatest tumor length: 0.7 cm Chronic inflammation. See comment. F. Left prostate, base, core biopsy: Prostatic adenocarcinoma. Todd grade: 3+3=6 Number of cores involved: 1/2 Proportion of tissue involved: <5% Perineural invasion: Not identified. Greatest tumor length: 0.1 cm See comment. SJ:karmen 05/04/2022 COMMENT A & C - Immunohistochemistry ([id number]) supports the above diagnosis. E. The biopsy cores are fragmented, exact number of core involvement cannot be assessed. F. Immunohistochemistry ([id number]) supports the above diagnosis. Case has been reviewed in consultation with Dr. Hull who concurs with the above diagnosis. IDC:[facility] MICROSCOPIC DESCRIPTION Slides are reviewed. GROSS DESCRIPTION A - Received is one container designated prostate, right apex. The specimen consists of two elongated fragments of light campoverde-white soft tissue each measuring 1.5 cm in length and 0.1 cm in diameter. The specimen is totally submitted in one cassette. B - Received is one container designated prostate, right mid. The specimen consists of two elongated fragments of light campoverde-white soft tissue measuring 1.0 and 2.5 cm in length and 0.1 cm in diameter. The specimen is totally submitted in one cassette. C - Received is one container designated prostate, right base. The specimen consists of two elongated fragments of light campoverde-white soft tissue measuring 1.5 and 1.7 cm in length and 0.1 cm in diameter. The specimen is totally submitted in one cassette. D - Received is one container designated prostate, left apex. The specimen consists of two elongated fragments of light campoverde-white soft tissue each measuring 1.8 cm in length and 0.1 cm in diameter. The specimen is totally submitted in one cassette. E - Received is one container designated prostate, left mid. The specimen consists of two elongated fragments of light campoverde-white soft tissue each measuring 1.8 cm in length and 0.1 cm in diameter. The specimen is totally submitted in one cassette. F - Received is one container designated prostate, left base. The specimen consists of two elongated fragments of light campoverde-white soft tissue measuring 1.4 and 1.6 cm in length and 0.1 cm in diameter. The specimen is totally submitted in one cassette. / CORRY:karmen 05/03/2022 TC:0 CPT: G0146
== END | disposition home or self-care (01) ==
LOC: LABSPEC 16:53
PROVIDERS: PCP Internal Medicine; Referring Provider Urology; Visit Provider Urology
DX: C61 Malignant neoplasm of prostate (principal); R97.20 Elevated prostate specific antigen [PSA]
CPT/HCPCS: 88305; 88341; 88342; G0416

== ENCOUNTER → 2022-05-24 | Outpatient (CLI) | payer MEDICARE, SELFPAY ==
--- NOTE | 2022-05-24 08:52 | NM_ITS ---
CLINICAL: 71-year-old male with history of primary prostate carcinoma. WHOLE BODY 99m Tc MDP RADIONUCLIDE BONE SCINTIGRAPHY COMPARISON: None available FINDINGS: Following the intravenous administration of 26.7 mCi of 99m Tc MDP, whole body bone images reveal: 1. Increased radiotracer uptake is noted in the right posterior sixth rib. 2. Enhanced radiopharmaceutical concentration is noted in the upper-mid cervical spine posteriorly on the left and right, the acromioclavicular compartments of both shoulders, medial glenohumeral compartment of the right shoulder, the bilateral wrists, the anteromedial tibial compartments of both knees, the left elbow, 10th thoracic vertebra posteriorly on the left, the fifth lumbar vertebra posteriorly on the right. 3. The remaining skeletal structures are scintigraphically unremarkable with normal-appearing renal images and urinary bladder activity identified. There is calcification of the bilateral costochondral junction. NM/Bone Scan Whole Body IMPRESSION: 1. The increase in radiopharmaceutical defined in the right posterior sixth rib is consistent with trauma-fracture. 2. Degenerative arthritis is defined in the cervical, thoracic and lumbar spine, the shoulders and wrists bilaterally, both knee articulations, the left elbow. 3. There is no definitive scintigraphic evidence of diffuse axial skeletal metastatic disease on the current examination. Electronically Signed: Cliff Moreland, at 21:22 EDT ,
== END | disposition home or self-care (01) ==
LOC: NM 08:45
PROVIDERS: PCP Internal Medicine; Referring Provider Urology; Visit Provider Urology
DX: C61 Malignant neoplasm of prostate (principal)
CPT/HCPCS: 78306; A9503

== ENCOUNTER → 2022-08-12 | Outpatient (CLI) | payer MEDICARE, SELFPAY ==
[2022-08-12 15:44] LABS: PSA,Total- Diagnostic 9.45 ng/mL (0.0-4.0)
== END | disposition home or self-care (01) ==
LOC: MTLAB 13:12
PROVIDERS: PCP Internal Medicine; Referring Provider Urology; Visit Provider Urology
DX: C61 Malignant neoplasm of prostate (principal)
CPT/HCPCS: 36415; 84153

== ENCOUNTER 2022-10-07 12:36 | Day surgery (SDC) | payer MEDICARE, SELFPAY ==
[2022-10-07 13:05] VITALS: BP 169/108; PULSE 87; RESP 16; TEMP 36.1; O2SAT 97; BMI 36.1
[2022-10-07] MEDS: Lactated Ringers 1,000 ML 15 ML IV (13:13)
--- NOTE | 2022-10-07 14:54 | PCM.HP.STD ---
HPI - General General Date of Service: 10/07/22 Chief Complaint: Prostate cancer HPI Narrative ODELL DE LEÓN, is a 72 M who presents for placement of gold markers and spacer gel for treatment of prostate cancer he is going undergoing radiation therapy [facility] Medical History (Updated 10/03/22 @ 11:33 by Kate Theodore) Arthritis Back pain BPH (benign prostatic hyperplasia) Cancer Easy bruising Elevated PSA Former smoker History of echocardiogram History of edema History of pain when walking History of steroid therapy History of stress test Hypertension Leg cramps Malignant neoplasm of prostate Nocturia Pulmonary embolism Shortness of breath on exertion Wears dentures Wears glasses Home Medications Cholecalciferol (Vitamin D3) [Vitamin D3] 10,000 unit PO DAILY 01/06/20 [History Last Taken Unknown] Corbyceps 2 cap PO TID 01/06/20 [History Last Taken Unknown] L.acidoph, paracasei,B. lactis 10 billion cell capsule 1 ea PO DAILY 01/06/20 [History Last Taken Unknown] Ppq With Ubiquinal 1 cap PO DAILY 01/06/20 [History Last Taken Unknown] cartilage 40 mg-collagen II 10 mg-boron 5 mg-hyaluronate 3.3 mg tablet (Metamarkets) 2 ea PO DAILY 01/06/20 [History Last Taken Unknown] phytonadione (vitamin K1) 100 mcg tablet 100 mcg PO DAILY 01/06/20 [History Last Taken Unknown] vitamin B complex 1 ea PO DAILY 01/06/20 [History Last Taken Unknown] allergen ext-Aspergillus fumig 1:20 injection solution ml subcut 08/29/22 [History Last Taken Unknown] chase fruit 1 dose PO 08/29/22 [History Last Taken Unknown] ashwahgandha root PO 08/29/22 [History Last Taken Unknown] boswallia PO 08/29/22 [History Last Taken Unknown] bromelains 100 mg chewable tablet 400 mg PO DAILY 08/29/22 [History Last Taken Unknown] cinnamon bark extract 500 mg tablet mg PO 08/29/22 [History Last Taken Unknown] coconut oil 1,000 mg capsule mg PO 08/29/22 [History Last Taken Unknown] eleutherococcus senticosus PO 08/29/22 [History Last Taken Unknown] william root extract 15 mg chewable tablet mg PO 08/29/22 [History Last Taken Unknown] gogi davis PO 08/29/22 [History Last Taken Unknown] gotu faisal leaf PO 08/29/22 [History Last Taken Unknown] green tea leaf extract 150 mg capsule mg PO 08/29/22 [History Last Taken Unknown] holy basil leaf PO 08/29/22 [History Last Taken Unknown] magnesium glycinate 100 mg tablet 100 mg PO DAILY 08/29/22 [History Last Taken Unknown] piperine PO 08/29/22 [History Last Taken Unknown] quercetin dihydrate PO 08/29/22 [History Last Taken Unknown] rhodiola root PO 08/29/22 [History Last Taken Unknown] tumeric 100 mg-william 150 mg-olive 50 mg-oreg 150 mg-caprylate capsule cap PO 08/29/22 [History Last Taken Unknown] white willow bark PO 08/29/22 [History Last Taken Unknown] yucca root PO 08/29/22 [History Last Taken Unknown] ciprofloxacin HCl 500 mg tablet (Cipro) 500 mg PO BID #10 tabs 10/07/22 [Rx Last Taken Unknown] Allergy/AdvReac Type Severity Reaction Status Date / Time orange juice AdvReac Food Verified 10/07/22 13:04 Allergy Surgical History (Updated 10/03/22 @ 11:33 by Kate Theodore) History of dental surgery Hx of hernia repair Hx of prostate biopsy Hx of tonsillectomy Hx of total hip arthroplasty Hx of total hip arthroplasty Social History (Updated 08/30/22 @ 09:15 by Iliana Jerome) household members: spouse housing: house Smoking Status: Former smoker alcohol intake: never substance use type: does not use Vital Signs Vital Signs Vital Signs: 10/07/22 13:05 10/07/22 13:05 Temperature 97 F L Temperature Source Temporal Pulse Rate 87 Respiratory Rate 16 Respiratory Pattern Normal Blood Pressure 169/108 H Blood Pressure Mean 128 Blood Pressure Source Monitor Blood Pressure Position Semi-Fowlers Blood Pressure Location Left Arm Pulse Ox 97 Oxygen Delivery Method Room Air Weight Weight: 111.2 kg Body Mass Index (BMI) 36.1
--- NOTE | 2022-10-07 14:55 | DCINST_ITS ---
Discharge Instructions Diet Discharge Diet: No restrictions Activity Discharge Activity: Return to Normal Activity and May Not Drive (while taking narcotic pain medications.) Dressing / Incision Call your doctor if you observe: Fever of 101 or Higher Follow Up Care Please Follow Up With: Levi Vicente MD When: Call [phone] for an appointment Test Results: Test results from this visit will be discussed in further detail at your follow- up appointment, if applicable. Discharge Plan Admission Primary Reason for Your Visit: Gold markers and spacer gel Attending Provider: Levi Vicente Primary Care Provider: Joana High Discharge Orders/Prescriptions Prescriptions: New ciprofloxacin HCl [Cipro] 500 mg tablet 500 mg PO BID Qty: 10 0RF Continued chase fruit 1 dose PO ashwahgandha root PO allergen ext-Aspergillus fumig 1:20 solution subcut boswallia PO bromelains 100 mg tablet,chewable 400 mg PO DAILY Rx Instructions: administer after a meal cinnamon bark extract 500 mg tablet PO coconut oil 1,000 mg capsule PO eleutherococcus senticosus PO william root extract 15 mg tablet,chewable PO gogi davis PO gotu faisal leaf PO green tea leaf extract 150 mg capsule PO holy basil leaf PO magnesium glycinate 100 mg tablet 100 mg PO DAILY piperine PO quercetin dihydrate PO rhodiola root PO ykjuuch-mbnw-qlfnz-oreg-capryl 100 mg-150 mg- 50 mg-150 mg capsule PO white willow bark PO yucca root PO phytonadione (vitamin K1) 100 MCG tablet 100 mcg PO DAILY vitamin B complex 1 EACH capsule 1 ea PO DAILY L.acidoph, paracasei,B. lactis 1 EACH capsule 1 ea PO DAILY [facility] Health 1 EACH tablet 2 ea PO DAILY Cholecalciferol (Vitamin D3) [Vitamin D3] 5,000 UNIT capsule 10,000 unit PO DAILY Corbyceps 2 cap PO TID Ppq With Ubiquinal 1 cap PO DAILY Referrals / Follow Up: Joana High DO [Primary Care Provider] - Disposition Disposition (needs filled in before D/C Order can be placed): Home, Self Care
[2022-10-07] MEDS: Cefazolin 2 GM in 0.9% Normal Saline 100 ML IV (15:27)
[2022-10-07] MEDS: Lidocaine 1% (20 ml mdv) 20 ML Vial (15:40)
--- NOTE | 2022-10-07 15:49 | PCM.OPRPT ---
Report of Operation Date of Procedure: 10/07/22 Pre-Operative Diagnosis: Prostate cancer Post-Operative Diagnosis: Same Surgery/Procedure Performed:: Placement of gold fiducial markers x3 and spacer gel matrix. Description of Surgical Findings:: In the preoperative area I reviewed with the patient how the procedure is done we talked about the risk of the procedure including the risk of infection, bleeding, migration of the spacer gel, the patient is planning to have radiation to the prostate he understands that the spacer gel has demonstrated benefit in reducing the risk of toxicity from the ration radiation to the rectum but there is no guarantees that this spacer gel will prevent any serious complications or toxicity to the rectum or bowels. After reviewing this with the patient and his family organ to proceed with placement of a spacer gel matrix. Patient was taken back to the operating room after smooth induction of anesthesia he was placed supine on the table. The penis and testicles were prepped and draped in usual sterile fashion, ultrasound probe was placed into the rectum and biplanar ultrasound was performed on the prostate. Identified the base mid and apex of the prostate identified the transition zone prostate. Then using a needle the first laundry marker supervisor was placed into the right base of the prostate, the second laundry marker supervisor was placed in the left base of the prostate, and the third core marker was placed in the right apex of the prostate after all 3 markers were placed the placement of the markers were confirmed by ultrasonography. The genitals and perineum were prepped and draped in usual sterile fashion. I then introduced a biplanar ultrasound probe into the rectum and performed ultrasonography and identified the Denonvilliers' fascia the prostate mid base and apex and seminal vesicles. The spacer gel mix was then prepared on the back table per manufactures instruction. Under ultrasound guidance in the midline perineum a bevel needle down we advanced through the perineum below the prostate into the space of Denonvilliers' fascia. This space which could be identified by ultrasound with a bright white layer between the prostate and the rectum. I then injected a puff of normal saline to identify the space further. After I confirmed that the needle was in the correct space in the mid prostate and the space of Denonvilliers' fascia between the rectum and the prostate. Then over the course of 15 seconds the gel matrix was injected slowly there was nice separation between the prostate and the rectum at the gel matrix was injected. The position of the gel matrix was confirmed by ultrasound. Then the injection needle was removed intact. Patient's perineum was cleaned patient was taken out of stirrups and then taken back to the PACU in good condition.
[2022-10-07 16:00] VITALS: BP 133/101; BP 144/104; BP 169/108; PULSE 90; PULSE 92; RESP 18; TEMP 36.6; O2SAT 93
[2022-10-07 16:05] VITALS: BP 152/87; BP 169/108; PULSE 87; RESP 18; O2SAT 93
[2022-10-07 16:09] VITALS: BP 143/89; BP 169/108; PULSE 86; RESP 20; TEMP 36.9; O2SAT 93
[2022-10-07 16:40] VITALS: BP 169/99
== END 2022-10-07 16:51 | disposition home or self-care (01) ==
LOC: SDC 12:41 → AC 12:43
PROVIDERS: PCP Internal Medicine; Referring Provider Urology; Visit Provider Urology
PROC: (CPT 55874; principal; 2022-10-07 15:35)
DX: C61 Malignant neoplasm of prostate (principal); Z87.891 Personal history of nicotine dependence; Z86.711 Personal history of pulmonary embolism; Z86.16 Personal history of COVID-19
CPT/HCPCS: 55876; 00400; J7120; J2405

== ENCOUNTER → 2022-10-12 | Outpatient (CLI) | payer MEDICARE, SELFPAY ==
--- NOTE | 2022-10-12 11:05 | MRI_ITS ---
STUDY: MR PELVIS WITH AND WITHOUT CONTRAST (PROSTATE); 3D POST PROCESSING REASON FOR EXAM: Male, 72 years old. Elevated PSA TECHNIQUE: Standardized multiparametric prostate MRI with T1, T2, DWI/ADC sequences were obtained in 3 orthogonal planes, and dynamic contrast enhancement sequences. contrast material was administered intravenously for the contrast portion of the examination. COMPARISON: MRI 04/08/2022 FINDINGS: The contours of the prostate gland are smooth. There is not mass effect on the bladder base. The transition zone is heterogenous. PI-RADS DWI score 3 - Focal mildly hypointense on ADC and isointense/mildly hyperintense on high b-value DWI. PI-RADS T2W score 4 - Non-circumscribed, homogeneous, moderately hypointense, and <1.5 cm in greatest dimension. 10 x 10 mm hypointense ill-defined nodule of the left anterolateral transitional zone towards the apex is again identified on image 19 of series 9, image 19 series 8 and image 10 of series 5. Contrast enhancement no early or contemporaneous enhancement; or diffuse multifocal enhancement NOT corresponding to a focal finding on T2W and/or DWI or focal ehancement responding to a lesion demonstrating features of BPH onT2WI (including features of extruded BPH in the PZ). The peripheral zone is heterogenous. PI-RADS DWI score 2 - Linear/wedge shaped hypointense on ADC and/or linear/wedge shaped hyperintense on high b-value DWI. PI-RADS T2W score 2 - Linear, wedge-shaped, or diffuse mild hypointensity, usually with indistinct margin. Contrast enhancement no early or contemporaneous enhancement; or diffuse multifocal enhancement NOT corresponding to a focal finding on T2W and/or DWI or focal enhancement responding to a lesion demonstrating features of BPH onT2WI (including features of extruded BPH in the PZ). The seminal vesicles demonstrate normal margins and T2 signal pattern. No mass lesion or invasion depicted. The rectoprostatic angles are normal. Urinary bladder is normal without wall thickening. The vascular structures of the are normal. The visualized hollow viscus structures are normal. T2 hyperintensity between the rectum and prostate is iatrogenic. No bone marrow edema or mass lesion depicted. MRI/Pelvis W/WO Contrast IMPRESSION: 1. PIRADS v2.1 2019 -- 4 - High (clinically significant cancer is likely). Redemonstration of suspicious nodule of the left anterior transitional zone near the apex. 2. Iatrogenic fluid between the prostate and rectum. 3. No extraprostatic adenopathy/mass identified. Electronically Signed: Damon Singh MD ([place]) at 15:50 EDT Reading Location ID and State: [id number] , Service support ,
[2022-10-12 11:37] LABS: CREATININE FINGERSTICK 1.2 mg/dL (0.70-1.30); EGFR FINGERSTICK > 60.0000 mL/min (>60)
== END | disposition home or self-care (01) ==
PROVIDERS: PCP Internal Medicine; Referring Provider Student in an Organized Health Care Education/Training Program; Visit Provider Student in an Organized Health Care Education/Training Program
DX: C61 Malignant neoplasm of prostate (principal)
CPT/HCPCS: 72197; A9575

== ENCOUNTER → 2023-10-17 | Outpatient (CLI) | payer MEDICARE, SELFPAY ==
[2023-10-17 17:40] LABS: PSA,Total- Diagnostic 0.76 ng/mL (0.0-4.0)
== END | disposition home or self-care (01) ==
LOC: MTLAB 16:20
PROVIDERS: PCP Internal Medicine; Referring Provider Nurse Practitioner; Visit Provider Nurse Practitioner
DX: C61 Malignant neoplasm of prostate (principal)
CPT/HCPCS: 36415; 84153

== ENCOUNTER → 2023-11-16 | Outpatient (CLI) | payer MEDICARE, SELFPAY ==
--- NOTE | 2023-11-16 14:04 | CT_ITS ---
INDICATION: SOB/COUGH EXAMINATION: CT CHEST WITHOUT CONTRAST - CT Chest W/O Contrast Injection TECHNIQUE: Helically acquired images were obtained of the chest. A radiation dose optimization technique was used for this scan. IV Contrast dosage and agent: None. COMPARISON: 04/16/2021. FINDINGS: LUNGS, PLEURA AND LARGE AIRWAYS: No masses, consolidation, or edema. No pleural effusion or thickening. No pneumothorax. THYROID: No thyroid lesions. HEART AND PERICARDIUM: Heart size is normal. No pericardial effusion. CORONARY ARTERIES: Coronary artery calcification is seen. VESSELS: Thoracic aorta is not dilated. MEDIASTINUM AND RITA: Although no gross mediastinal or hilar mass or adenopathy is seen, adenopathy is difficult to exclude without IV contrast was not given. Esophagus is unremarkable. No hiatal hernia. UPPER ABDOMEN: No acute pathology. BONES: No suspicious lytic or blastic abnormality. CT/Chest without Contrast IMPRESSION: No definite acute or significant abnormality seen. Electronically Signed: Christopher Garcia MD at 23:37 EDT ,
== END | disposition home or self-care (01) ==
PROVIDERS: PCP Internal Medicine; Referring Provider Internal Medicine Pulmonary Disease; Visit Provider Internal Medicine Pulmonary Disease
DX: R06.02 Shortness of breath (principal); R05.9 Cough, unspecified
CPT/HCPCS: 71250

== ENCOUNTER → 2024-04-18 | Outpatient (CLI) | payer MEDICARE, SELFPAY ==
[2024-04-18 19:48] LABS: PSA,Total- Diagnostic 0.29 ng/mL (0.00-4.00)
== END | disposition home or self-care (01) ==
LOC: MTLAB 15:16
PROVIDERS: PCP Internal Medicine; Referring Provider Nurse Practitioner; Visit Provider Nurse Practitioner
DX: C61 Malignant neoplasm of prostate (principal)
CPT/HCPCS: 36415; 84153